=== PATIENT | female | born 1955 | race African-American/Black ===

== ENCOUNTER 2017-03-21 05:31 | Inpatient (IN) ==
[~2017-03-21 05:31] MED LIST: LACTATED RINGERS 1,000 ML IV SCH
[2017-03-21] MEDS ORDERED: CLINDAMYCIN INJ 50 ML IV ONE (05:47)
[2017-03-21] MEDS ORDERED: VANCOMYCIN 1,000 MG VIAL ONE (05:47)
[2017-03-21] MEDS ORDERED: VANCOMYCIN INJ 1,000 MG in SODIUM CHLORIDE 0.9% 250 ML IV ONE (06:00)
[2017-03-21] MEDS ORDERED: CLINDAMYCIN INJ 900 MG in PREMIX 1 EACH IV ONE (06:00)
[2017-03-21] MEDS ORDERED: DIAZEPAM 5 MG TABLET ONE (06:38)
[2017-03-21] MEDS ORDERED: FAMOTIDINE 20 MG TABLET ONE (06:38)
[2017-03-21] MEDS ORDERED: DIAZEPAM 5 MG TABLET PO STA (06:40)
[2017-03-21] MEDS ORDERED: FAMOTIDINE 20 MG TABLET PO STA (06:40)
[2017-03-21] MEDS ORDERED: TRANEXAMIC ACID 1,000 MG/10 ML VIAL IV ONE (06:45)
[2017-03-21] MEDS ORDERED: DEXTROSE 50% 25 GM/50 ML VIAL IV PRN (07:11)
[2017-03-21] MEDS ORDERED: GLUCAGON 1 MG VIAL IM PRN (07:11)
[2017-03-21] MEDS ORDERED: ZALEPLON 5 MG CAPSULE PO PRN (07:12)
[2017-03-21] MEDS ORDERED: MAGNESIUM HYDROXIDE SUSP 30 ML UDCUP PO PRN (07:12)
[2017-03-21] MEDS ORDERED: ONDANSETRON 4 MG/2 ML VIAL IV PRN (07:12)
[2017-03-21] MEDS ORDERED: oxyCODONE IR 5 MG TABLET PO PRN (07:12)
[2017-03-21] MEDS ORDERED: MORPHINE 2 MG/1 ML SYRINGE IV PRN ×2 (07:12)
[2017-03-21] MEDS ORDERED: diphenhydrAMINE CAP 25 MG CAPSULE PO PRN (07:12)
[2017-03-21] MEDS ORDERED: BACITRACIN OINT 0.9 GM PACK TOP ONE (08:04)
[2017-03-21] MEDS ORDERED: ROPIVACAINE 0.5% 30 ML VIAL ONE (08:46)
[2017-03-21] MEDS ORDERED: PAROXETINE MESYLATE 7.5 MG PO SCH (09:00)
[2017-03-21] MEDS ORDERED: MIDAZOLAM 2 MG/2 ML VIAL ONE (09:07)
[2017-03-21] MEDS ORDERED: SEVOFLURANE 1 UNIT/15 MINUTE INH ONE (09:07)
[2017-03-21] MEDS ORDERED: ONDANSETRON 4 MG/2 ML VIAL ONE (09:07)
[2017-03-21] MEDS ORDERED: fentaNYL 100 MCG/2 ML VIAL ONE (09:07)
[2017-03-21] MEDS ORDERED: ACETAMINOPHEN 1,000 MG/100 ML VIAL IV ONE (09:08)
[2017-03-21] MEDS ORDERED: NEOSTIGMINE 10 MG/10 ML VIAL ONE (09:08)
[2017-03-21] MEDS: INSULIN LISPRO 100 UNIT/ML SUBCUT SCH ×4 (10:40→20:33)
[2017-03-21] MEDS: PANTOPRAZOLE 40 MG TABLET PO SCH ×2 (10:41→20:33)
[2017-03-21] MEDS: KETOROLAC 30 MG/1 ML VIAL IV SCH ×3 (10:52→20:33)
[2017-03-21] MEDS: LACTATED RINGERS 1,000 ML IV SCH ×3 (10:52→22:30)
[2017-03-21] MEDS: DOCUSATE SODIUM 100 MG CAPSULE PO SCH ×2 (12:03→20:33)
[2017-03-21] MEDS: ACETAMINOPHEN 500 MG TABLET PO SCH ×3 (12:15→23:19)
[2017-03-21] MEDS: CLINDAMYCIN INJ 900 MG in PREMIX 1 EACH IV SCH ×2 (12:15→20:32)
[2017-03-21] MEDS: CHOLECALCIFEROL 1,000 UNIT TABLET PO SCH (14:44)
[2017-03-21] MEDS: VENLAFAXINE XR 75 MG CAPSULE PO SCH (15:24)
[2017-03-21] MEDS ORDERED: hydrALAZINE 20 MG/1 ML VIAL IV PRN (16:15)
[2017-03-21] MEDS: LOVASTATIN 20 MG TABLET PO SCH (17:39)
[2017-03-22] MEDS: KETOROLAC 30 MG/1 ML VIAL IV SCH (03:16)
[2017-03-22] MEDS: ACETAMINOPHEN 500 MG TABLET PO SCH (05:03)
[2017-03-22] MEDS: FONDAPARINUX 2.5 MG/0.5 ML SYRINGE SUBCUT SCH (05:03)
[2017-03-22 05:49] LABS: Basophils % 0.4 % (0.0-0.8); Eosinophils # 0.2 10*3/uL (0.0-0.87); Eosinophils % 2.8 % (0.00-10.9); Hematocrit 29.5 VOL% (35.7-47.0); Hemoglobin 9.9 GM/DL (12.0-16.0); Immature Granulocytes % 1.2 %; Lymphocytes # 1.8 10*3/uL (1.4-4.0); Lymphocytes % 21.4 % (21.3-54.2); Mean Corpuscular HGB Conc 33.6 GM/DL (32-36); Mean Corpuscular Hemoglobin 25 PG (27-34); Mean Corpuscular Volume 73.6 FL (87-102); Mean Platelet Volume 11.3 FL (9.6-12.0); Monocytes % 11.7 % (1.7-12.7); Neutrophils # 5.3 10*3/uL (1.4-7.4); Neutrophils % 62.5 % (38.7-73.9); Platelet Count 205 T/CUMM (130-400); Red Blood Count 4.01 MC/CUMM (3.8-5.5); Red Cell Distribution Width 14.5 % (9.3-17.3); White Blood Count 8.5 T/CUMM (4-12)
[2017-03-22 06:23] LABS: Calcium 8.5 MG/DL (8.5-10.1); Osmolality,Calculated 276.7 MOS/KG (273-304); Potassium 3.9 MMOL/L (3.5-5.1)
[2017-03-22] MEDS: INSULIN LISPRO 100 UNIT/ML SUBCUT SCH ×4 (08:28→20:58)
[2017-03-22] MEDS: GLIMEPIRIDE 2 MG TABLET PO SCH (09:07)
[2017-03-22] MEDS: CELECOXIB 200 MG CAPSULE PO SCH (09:07)
[2017-03-22] MEDS: CHOLECALCIFEROL 1,000 UNIT TABLET PO SCH (09:08)
[2017-03-22] MEDS: VALSARTAN/HCTZ 160-12.5 MG TABLET PO SCH (09:08)
[2017-03-22] MEDS: PANTOPRAZOLE 40 MG TABLET PO SCH ×2 (09:08→20:58)
[2017-03-22] MEDS: VENLAFAXINE XR 75 MG CAPSULE PO SCH (09:08)
[2017-03-22] MEDS: DOCUSATE SODIUM 100 MG CAPSULE PO SCH ×2 (09:08→20:58)
[2017-03-22] MEDS: metFORMIN 500 MG TABLET PO SCH ×2 (09:33→17:06)
[2017-03-22] MEDS: oxyCODONE IR 5 MG TABLET PO PRN ×2 (16:55→22:38)
[2017-03-22] MEDS: LOVASTATIN 20 MG TABLET PO SCH (17:42)
[2017-03-23] MEDS: LACTATED RINGERS 1,000 ML IV SCH (03:22)
[2017-03-23 04:09] LABS: Basophils % 0.1 % (0.0-0.8); Eosinophils # 0.1 10*3/uL (0.0-0.87); Eosinophils % 1.2 % (0.00-10.9); Hemoglobin 9.5 GM/DL (12.0-16.0); Immature Granulocytes % 0.4 %; Immature Granulocytes Absolute 0.04 #; Lymphocytes # 2.1 10*3/uL (1.4-4.0); Lymphocytes % 21.7 % (21.3-54.2); Mean Corpuscular HGB Conc 32.8 GM/DL (32-36); Mean Corpuscular Hemoglobin 25 PG (27-34); Mean Corpuscular Volume 75.1 FL (87-102); Monocytes # 0.7 10*3/uL (0.11-0.8); Monocytes % 7.6 % (1.7-12.7); Neutrophils # 6.6 10*3/uL (1.4-7.4); Platelet Count 216 T/CUMM (130-400); Red Blood Count 3.86 MC/CUMM (3.8-5.5); Red Cell Distribution Width 14.1 % (9.3-17.3); White Blood Count 9.6 T/CUMM (4-12)
[2017-03-23] MEDS: FONDAPARINUX 2.5 MG/0.5 ML SYRINGE SUBCUT SCH (05:03)
[2017-03-23] MEDS: INSULIN LISPRO 100 UNIT/ML SUBCUT SCH ×3 (07:13→16:30)
[2017-03-23] MEDS: GLIMEPIRIDE 2 MG TABLET PO SCH (08:44)
[2017-03-23] MEDS: CELECOXIB 200 MG CAPSULE PO SCH (08:45)
[2017-03-23] MEDS: VENLAFAXINE XR 75 MG CAPSULE PO SCH (08:47)
[2017-03-23] MEDS: DOCUSATE SODIUM 100 MG CAPSULE PO SCH (08:47)
[2017-03-23] MEDS: CHOLECALCIFEROL 1,000 UNIT TABLET PO SCH (08:47)
[2017-03-23] MEDS: VALSARTAN/HCTZ 160-12.5 MG TABLET PO SCH (08:47)
[2017-03-23] MEDS: PANTOPRAZOLE 40 MG TABLET PO SCH (08:47)
[2017-03-23] MEDS: oxyCODONE IR 5 MG TABLET PO PRN ×2 (09:37→14:40)
[2017-03-23] MEDS: metFORMIN 500 MG TABLET PO SCH (13:36)
[2017-03-23 16:45] VITALS: BP 116/73
== END 2017-03-23 16:30 | disposition home or self-care (01) | DRG 470 ==
LOC: N.SDSINP 05:31 → N.3E 09:53
PROVIDERS: ADMIT Orthopaedic Surgery; ATTEND Orthopaedic Surgery

== ENCOUNTER 2020-01-04 18:15 | Inpatient (IN) ==
[2020-01-04] MEDS ORDERED: SODIUM CHLORIDE 0.9% 2,000 ML IV STA (18:37)
[2020-01-04] MEDS ORDERED: ACETAMINOPHEN 500 MG TABLET PO STA (18:37)
[2020-01-04 18:55] LABS: Basophils % 0.3 % (0.0-0.8); Eosinophils # 0.1 10*3/uL (0.0-0.87); Eosinophils % 0.4 % (0.00-10.9); Hematocrit 36.1 VOL% (35.7-47.0); Hemoglobin 12.1 GM/DL (12.0-16.0); Immature Granulocytes % 0.6 %; Immature Granulocytes Absolute 0.08 #; Lymphocytes # 1.2 10*3/uL (1.4-4.0); Lymphocytes % 9.6 % (21.3-54.2); Mean Corpuscular HGB Conc 33.5 GM/DL (32-36); Mean Platelet Volume 11.5 FL (9.6-12.0); Monocytes % 5.2 % (1.7-12.7); Neutrophils % 83.9 % (38.7-73.9); Platelet Count 235 T/CUMM (130-400); Red Blood Count 4.88 MC/CUMM (3.8-5.5); Red Cell Distribution Width 14.8 % (9.3-17.3); White Blood Count 12.8 T/CUMM (4-12)
[2020-01-04 19:05] LABS: PT Patient Result 11.2 SECS (9.8-11.9)
[2020-01-04 19:16] LABS: Bilirubin,Urine Negative (Negative); Blood, Urine Small mg/dL (Negative); Glucose,Urine (UA) Negative (Negative); Ketones,Urine Negative (Negative); Nitrite,Urine Negative (Negative); Protein,Urine Negative; RBC,Urine 9 /HPF (0-4); Urine Appearance CLEAR (Clear); Urine Color Straw (Yellow); Urine Specific Gravity 1.006 (1.001-1.035); Urine Urobilinogen < 2.0 EU/DL (0.2-1.0); WBC,Urine 4 /HPF (0-6)
[2020-01-04 19:22] LABS: Albumin 3.7 G/DL (3.4-5.0); Calcium 9.5 MG/DL (8.5-10.1); Osmolality,Calculated 271.2 MOS/KG (273-304); Total Protein 8.4 G/DL (6.4-8.3)
[2020-01-04] MEDS ORDERED: cefTRIAXone 1,000 MG in SODIUM CHLORIDE 0.9% 100 ML IV STA (19:44)
[2020-01-04] MEDS ORDERED: guaiFENesin/DM ER 600-30 MG TABLET PO PRN (20:13)
[2020-01-04] MEDS ORDERED: GLUCAGON 1 MG VIAL IM PRN (20:13)
[2020-01-04] MEDS ORDERED: NICOTINE 21 MG/24 HR PATCH TRANSDERM PRN (20:13)
[2020-01-04] MEDS ORDERED: diphenhydrAMINE CAP 25 MG CAPSULE PO PRN (20:13)
[2020-01-04] MEDS ORDERED: hydrALAZINE 20 MG/1 ML VIAL IV PRN (20:13)
[2020-01-04] MEDS ORDERED: DEXTROSE 50% 25 GM/50 ML VIAL IV PRN (20:13)
[2020-01-04] MEDS: MORPHINE 4 MG/1 ML VIAL IV PRN (21:06)
[2020-01-04] MEDS: SODIUM CHLORIDE 0.9% 1,000 ML IV SCH (23:33)
[2020-01-04] MEDS: VANCOMYCIN INJ 1,500 MG in SODIUM CHLORIDE 0.9% 500 ML IV SCH (23:34)
[2020-01-04] MEDS: INSULIN REGULAR 100 UNIT/ML SUBCUT SCH (23:34)
[2020-01-05] MEDS: SODIUM CHLORIDE 0.9% 1,000 ML IV SCH ×3 (04:00→23:33)
[2020-01-05 06:29] LABS: Basophils % 0.2 % (0.0-0.8); Eosinophils # 0.1 10*3/uL (0.0-0.87); Eosinophils % 0.7 % (0.00-10.9); Hematocrit 32.8 VOL% (35.7-47.0); Immature Granulocytes % 0.4 %; Immature Granulocytes Absolute 0.05 #; Lymphocytes # 2.6 10*3/uL (1.4-4.0); Lymphocytes % 18.2 % (21.3-54.2); Mean Corpuscular HGB Conc 33.5 GM/DL (32-36); Mean Corpuscular Volume 75.1 FL (87-102); Mean Platelet Volume 12.2 FL (9.6-12.0); Monocytes % 7.3 % (1.7-12.7); Neutrophils % 73.2 % (38.7-73.9); Platelet Count 215 T/CUMM (130-400); Red Blood Count 4.37 MC/CUMM (3.8-5.5); Red Cell Distribution Width 14.9 % (9.3-17.3); White Blood Count 14.2 T/CUMM (4-12)
[2020-01-05 06:48] LABS: Albumin 3.1 G/DL (3.4-5.0); Bilirubin,Total 0.8 MG/DL (0.2-1.0); Osmolality,Calculated 278.5 MOS/KG (273-304); Total Protein 7.1 G/DL (6.4-8.3)
[2020-01-05] MEDS: INSULIN REGULAR 100 UNIT/ML SUBCUT SCH ×4 (07:52→21:41)
[2020-01-05] MEDS: SIMETHICONE CHEW 125 MG TABLET PO PRN ×2 (09:37→16:56)
[2020-01-05] MEDS: VANCOMYCIN INJ 1,500 MG in SODIUM CHLORIDE 0.9% 500 ML IV SCH ×2 (12:07→23:28)
[2020-01-05] MEDS: ACETAMINOPHEN 325 MG TABLET PO PRN ×2 (16:33→20:22)
[2020-01-05] MEDS: metFORMIN 500 MG TABLET PO SCH (16:56)
[2020-01-05] MEDS: SIMVASTATIN 20 MG TABLET PO SCH (16:56)
[2020-01-05] MEDS ORDERED: cefTRIAXone 1,000 MG in SYRINGE 1 EACH IV SCH (18:00)
[2020-01-05] MEDS: GLIMEPIRIDE 4 MG TABLET PO SCH (21:40)
[2020-01-05] MEDS: PANTOPRAZOLE 40 MG TABLET PO SCH (21:40)
[2020-01-06] MEDS: SODIUM CHLORIDE 0.9% 1,000 ML IV SCH ×3 (04:00→19:46)
[2020-01-06 06:22] LABS: Basophils % 0.2 % (0.0-0.8); Eosinophils # 0.1 10*3/uL (0.0-0.87); Eosinophils % 1.3 % (0.00-10.9); Hematocrit 33.3 VOL% (35.7-47.0); Immature Granulocytes % 0.5 %; Immature Granulocytes Absolute 0.05 #; Lymphocytes % 20.6 % (21.3-54.2); Mean Corpuscular Volume 75.7 FL (87-102); Monocytes % 9.6 % (1.7-12.7); Neutrophils % 67.8 % (38.7-73.9); Platelet Count 186 T/CUMM (130-400); White Blood Count 9.6 T/CUMM (4-12)
[2020-01-06 06:50] LABS: Calcium 8.9 MG/DL (8.5-10.1); Osmolality,Calculated 276.4 MOS/KG (273-304)
[2020-01-06] MEDS: allopurinoL 100 MG TABLET PO SCH (08:12)
[2020-01-06] MEDS: GLIMEPIRIDE 4 MG TABLET PO SCH ×2 (08:12→21:25)
[2020-01-06] MEDS: MULTIVITAMIN (CENTRUM) TABLET PO SCH (08:12)
[2020-01-06] MEDS: metFORMIN 500 MG TABLET PO SCH ×2 (08:12→17:13)
[2020-01-06] MEDS: ASPIRIN EC 81 MG TABLET PO SCH (08:12)
[2020-01-06] MEDS: PANTOPRAZOLE 40 MG TABLET PO SCH ×2 (08:13→21:25)
[2020-01-06] MEDS: ACETAMINOPHEN 325 MG TABLET PO PRN ×2 (08:14→21:24)
[2020-01-06] MEDS: INSULIN REGULAR 100 UNIT/ML SUBCUT SCH ×4 (08:14→21:25)
[2020-01-06] MEDS: LOSARTAN/HCTZ 50-12.5 MG TABLET PO SCH (08:45)
[2020-01-06] MEDS ORDERED: INFLUENZA VIRUS VACCINE 0.5 ML SYRINGE IM ONE (09:00)
[2020-01-06] MEDS: MORPHINE 4 MG/1 ML VIAL IV PRN ×2 (14:38→19:49)
[2020-01-06] MEDS: cefTRIAXone 2,000 MG in SYRINGE 1 EACH IV SCH (14:38)
[2020-01-06] MEDS ORDERED: MAGNESIUM SULF RIDER 2 GM in PREMIX 1 EACH IV ONE (15:00)
[2020-01-06] MEDS: SIMVASTATIN 20 MG TABLET PO SCH (17:13)
[2020-01-06] MEDS: ONDANSETRON 4 MG/2 ML VIAL IV PRN (20:03)
[2020-01-07] MEDS: SODIUM CHLORIDE 0.9% 1,000 ML IV SCH ×3 (04:52→20:25)
[2020-01-07 07:38] LABS: Basophils % 0.5 % (0.0-0.8); Eosinophils # 0.2 10*3/uL (0.0-0.87); Eosinophils % 2.5 % (0.00-10.9); Hematocrit 32.2 VOL% (35.7-47.0); Hemoglobin 10.9 GM/DL (12.0-16.0); Immature Granulocytes % 0.4 %; Immature Granulocytes Absolute 0.03 #; Mean Corpuscular HGB Conc 33.9 GM/DL (32-36); Mean Corpuscular Volume 75.1 FL (87-102); Mean Platelet Volume 11.7 FL (9.6-12.0); Monocytes % 10.6 % (1.7-12.7); Platelet Count 189 T/CUMM (130-400); Red Blood Count 4.29 MC/CUMM (3.8-5.5); Red Cell Distribution Width 15.4 % (9.3-17.3); White Blood Count 7.7 T/CUMM (4-12)
[2020-01-07] MEDS: INSULIN REGULAR 100 UNIT/ML SUBCUT SCH ×4 (07:51→20:28)
[2020-01-07 07:56] LABS: Risk Ratio 3.13; VLDL CHOLESTEROL 21.4 MG/DL
[2020-01-07 08:03] LABS: Calcium 8.9 MG/DL (8.5-10.1); Osmolality,Calculated 276.5 MOS/KG (273-304)
[2020-01-07] MEDS: PANTOPRAZOLE 40 MG TABLET PO SCH ×2 (08:30→20:28)
[2020-01-07] MEDS: metFORMIN 500 MG TABLET PO SCH ×2 (08:30→16:45)
[2020-01-07] MEDS: GLIMEPIRIDE 4 MG TABLET PO SCH ×2 (08:30→20:28)
[2020-01-07] MEDS: MULTIVITAMIN (CENTRUM) TABLET PO SCH (08:30)
[2020-01-07] MEDS: LOSARTAN/HCTZ 50-12.5 MG TABLET PO SCH (08:30)
[2020-01-07] MEDS: ASPIRIN EC 81 MG TABLET PO SCH (08:31)
[2020-01-07] MEDS: allopurinoL 100 MG TABLET PO SCH (08:31)
[2020-01-07] MEDS: VENLAFAXINE XR 75 MG CAPSULE PO SCH (08:31)
[2020-01-07] MEDS: cefTRIAXone 2,000 MG in SYRINGE 1 EACH IV SCH (09:58)
[2020-01-07] MEDS: SIMVASTATIN 20 MG TABLET PO SCH (16:38)
[2020-01-07] MEDS: DOCOSANOL 10% CREAM 2 GM TUBE TOP SCH ×3 (16:38→21:25)
[2020-01-07] MEDS: ONDANSETRON 4 MG/2 ML VIAL IV PRN (19:21)
[2020-01-07] MEDS: ACETAMINOPHEN 325 MG TABLET PO PRN (20:27)
[2020-01-08] MEDS: SODIUM CHLORIDE 0.9% 1,000 ML IV SCH (03:06)
[2020-01-08 05:03] LABS: Basophils % 0.5 % (0.0-0.8); Eosinophils # 0.3 10*3/uL (0.0-0.87); Eosinophils % 3.7 % (0.00-10.9); Hematocrit 32.1 VOL% (35.7-47.0); Hemoglobin 10.6 GM/DL (12.0-16.0); Immature Granulocytes % 0.3 %; Immature Granulocytes Absolute 0.02 #; Lymphocytes # 2.6 10*3/uL (1.4-4.0); Mean Corpuscular Volume 74.7 FL (87-102); Mean Platelet Volume 11.5 FL (9.6-12.0); Monocytes % 11.1 % (1.7-12.7); Neutrophils % 48.4 % (38.7-73.9); Platelet Count 228 T/CUMM (130-400); Red Cell Distribution Width 15.1 % (9.3-17.3); White Blood Count 7.3 T/CUMM (4-12)
[2020-01-08] MEDS: DOCOSANOL 10% CREAM 2 GM TUBE TOP SCH ×2 (05:13→10:26)
[2020-01-08 05:25] LABS: Calcium 9.6 MG/DL (8.5-10.1); Osmolality,Calculated 275.3 MOS/KG (273-304)
[2020-01-08 07:13] VITALS: BP 181/83
[2020-01-08] MEDS: VENLAFAXINE XR 75 MG CAPSULE PO SCH (08:23)
[2020-01-08] MEDS: ASPIRIN EC 81 MG TABLET PO SCH (08:23)
[2020-01-08] MEDS: LOSARTAN/HCTZ 50-12.5 MG TABLET PO SCH (08:24)
[2020-01-08] MEDS: allopurinoL 100 MG TABLET PO SCH (08:24)
[2020-01-08] MEDS: GLIMEPIRIDE 4 MG TABLET PO SCH (08:24)
[2020-01-08] MEDS: metFORMIN 500 MG TABLET PO SCH (08:24)
[2020-01-08] MEDS: MULTIVITAMIN (CENTRUM) TABLET PO SCH (08:24)
[2020-01-08] MEDS: PANTOPRAZOLE 40 MG TABLET PO SCH (08:25)
[2020-01-08] MEDS: cefTRIAXone 2,000 MG in SYRINGE 1 EACH IV SCH (08:25)
[2020-01-08] MEDS: ACETAMINOPHEN 325 MG TABLET PO PRN (08:25)
[2020-01-08] MEDS: INSULIN REGULAR 100 UNIT/ML SUBCUT SCH (08:25)
== END 2020-01-08 11:06 | disposition home or self-care (01) | DRG 689 ==
LOC: N.5E 18:15 → N.ED 18:15 → N.EDINP 18:15 → SUATTDRO 01-06 15:35
PROVIDERS: ADMIT Internal Medicine; ATTEND Internal Medicine